=== PATIENT | female | born 1980 | race Caucasian/White ===

== ENCOUNTER 2018-09-05 06:17 | Inpatient (IN) | payer OTHER ==
[2018-09-05] MEDS: DEXTROSE 5%-LR 1,000 ML IV ×3 (06:00→20:11)
[2018-09-05 08:11] LABS: INR 0.98; PROTIME 13.1 Sec (11.9-14.9)
[2018-09-05 08:12] LABS: PARTIAL THROMBOPLASTIN TIME 30.2 Sec (23.0-35.0)
[2018-09-05] MEDS ORDERED: FENTAnyl 50 MCG/ML VIAL (08:17)
[2018-09-05] MEDS ORDERED: MIDAZOLAM 1 MG/ML 2 ML INJ (08:21)
[2018-09-05] MEDS ORDERED: PHENYLephrine (100 MCG/ML) 5ML SYG ×3 (08:40→10:34)
[2018-09-05] MEDS ORDERED: ROPIVACAINE 0.2% 20 ML VIAL (08:54)
[2018-09-05] MEDS ORDERED: SUCCINYLCHOLINE CHLORIDE 100 MG/5 ML SYG IV (08:59)
[2018-09-05] MEDS ORDERED: ROCURONIUM 50 MG INJ (08:59)
[2018-09-05] MEDS ORDERED: CEFAZOLIN 1 GM INJ (08:59)
[2018-09-05] MEDS ORDERED: PROPOFOL 20 ML (08:59)
[2018-09-05] MEDS ORDERED: LIDOCAINE 100 MG SYRINGE (08:59)
[2018-09-05] MEDS ORDERED: LABETALOL HCL 20MG INJ IV (09:00)
[2018-09-05] MEDS ORDERED: FENTAnyl 50 MCG/ML VIAL IV ×2 (09:00)
[2018-09-05] MEDS ORDERED: MEPERIDINE 25 MG INJ IV (09:00)
[2018-09-05] MEDS ORDERED: HYDROmorphONE 1 MG/5 ML IV SYRINGE IV ×2 (09:00)
[2018-09-05] MEDS ORDERED: DIPHENHYDRAMINE 50 MG INJ IV (09:00)
[2018-09-05] MEDS ORDERED: ALBUTEROL 0.083% (NEB) 2.5 MG/3 ML AMP HHN (09:00)
[2018-09-05] MEDS ORDERED: morphine SULFATE/PF (10 MG/10 ML) INJ (09:10)
[2018-09-05] MEDS: CEFAZOLIN 2 GM/50 ML (PMX) 50 ML IVPB ×3 (09:30→23:09)
[2018-09-05] MEDS ORDERED: SUGAMMADEX SODIUM 200 MG/2 ML VIAL IV (10:25)
[2018-09-05] MEDS ORDERED: ONDANSETRON 4 MG INJ (10:51)
[2018-09-05] MEDS: METOCLOPRAMIDE 10 MG INJ IV (11:16)
[2018-09-05] MEDS ORDERED: AMITRIPTYLINE 10 MG TAB PO (11:30)
[2018-09-05] MEDS ORDERED: ZOLPIDEM 5 MG TAB PO (11:30)
[2018-09-05] MEDS ORDERED: BISACODYL (EC) 5 MG TAB PO (11:30)
[2018-09-05] MEDS ORDERED: ONDANSETRON INJ 6 MG in DEXTROSE 5% 50 ML IVPB (11:30)
[2018-09-05] MEDS ORDERED: HYDROCODONE/APAP (5/325) TAB PO ×2 (11:30)
[2018-09-05] MEDS ORDERED: DIPHENHYDRAMINE 50 MG CAP PO (11:30)
[2018-09-05] MEDS: HYDROmorphONE 1 MG/5 ML IV SYRINGE IV ×2 (11:36→12:09)
[2018-09-05] MEDS: FENTAnyl 50 MCG/ML VIAL IV (12:08)
[2018-09-05] MEDS: ONDANSETRON 4 MG INJ IV (12:12)
[2018-09-05 12:23] LABS: ADD UMIC YES; UR ASCORBIC ACID NEGATIVE (NEGATIVE); UR BACTERIA FEW /HPF (NONE SEEN); UR BILIRUBIN (Dip) NEGATIVE (NEGATIVE); UR BLOOD (Dip) 2+ mg/dL (NEGATIVE); UR CLARITY CLEAR (CLEAR); UR COLOR COLORLESS (YELLOW); UR GLUCOSE (Dip) 3+ mg/dL (NEGATIVE); UR KETONES (Dip) 2+ mg/dL (NEGATIVE); UR LEUKOCYTE ESTERASE (Dip) NEGATIVE Leu/ul (NEGATIVE); UR NITRITE (Dip) NEGATIVE (NEGATIVE); UR RBC 12 /HPF (0-5); UR SPECIFIC GRAVITY (Dip) 1.011 (1.003-1.030); UR TOTAL PROTEIN (Dip) NEGATIVE (NEGATIVE); UR UROBILINOGEN (Dip) NEGATIVE (NEGATIVE); UR WBC 2 /HPF (0-5)
[2018-09-05] MEDS ORDERED: DEXTROSE 50% 50 ML SYRINGE IV ×2 (12:30)
[2018-09-05] MEDS ORDERED: GLUCOSE GEL 15 GRAM TUBE PO ×2 (12:30)
[2018-09-05] MEDS ORDERED: GLUCOSE GEL 15 GRAM TUBE BUCCAL (12:30)
[2018-09-05] MEDS ORDERED: GLUCAGON 1 MG INJ IM (12:30)
[2018-09-05] MEDS: KETOROLAC 30 MG INJ IV ×3 (13:34→23:30)
[2018-09-05] MEDS: LACTATED RINGER'S 1,000 ML IV ×2 (15:13→19:02)
[2018-09-05] MEDS: AMITRIPTYLINE 10 MG TAB PO ×2 (20:12→21:00)
[2018-09-06 05:36] LABS: ADD MAN DIFF? NO; BASOPHILS % 0.3 % (0.0-2.0); EOSINOPHILS % 0.1 % (0.0-7.0); HEMATOCRIT 35.6 % (37.0-47.0); LYMPHOCYTES # 2.3 10^3/ul (0.8-2.9); MEAN CORPUSCULAR HEMOGLOBIN 28.6 pg (29.0-33.0); MEAN CORPUSCULAR HGB CONC 30.9 g/dl (32.0-37.0); MEAN CORPUSCULAR VOLUME 92.5 fl (82.0-101.0); MEAN PLATELET VOLUME 9.5 fl (7.4-10.4); MONOCYTES % 8.5 % (0.0-11.0); NEUTROPHIL # 8.2 10^3/ul (1.6-7.5); NEUTROPHILS % 70.8 % (39.0-77.0); PLATELET COUNT 296 10^3/UL (140-415); RED BLOOD COUNT 3.85 10^6/ul (4.20-5.40); RED CELL DISTRIBUTION WIDTH 12.5 % (11.5-14.5)
[2018-09-06 05:36] LABS: WHITE BLOOD COUNT 11.6 10^3/ul (4.8-10.8)
[2018-09-06] MEDS: LACTATED RINGER'S 1,000 ML IV ×3 (05:39→19:02)
[2018-09-06] MEDS: KETOROLAC 30 MG INJ IV ×4 (05:41→23:38)
[2018-09-06] MEDS: CEFAZOLIN 2 GM/50 ML (PMX) 50 ML IVPB ×3 (05:43→21:29)
[2018-09-06 06:19] LABS: ANION GAP 11 (5-13); BLOOD UREA NITROGEN 8 mg/dl (7-20); CARBON DIOXIDE 18 mmol/L (21-31); CHLORIDE 111 mmol/L (97-110); CREATININE 0.48 mg/dl (0.44-1.00); POTASSIUM 4.4 mmol/L (3.5-5.1); SODIUM 140 mmol/L (135-144)
[2018-09-06] MEDS ORDERED: glipiZIDE 5 MG TAB PO (09:00)
[2018-09-06] MEDS: metFORMIN 500 MG TAB PO ×2 (09:00→20:52)
[2018-09-06] MEDS: GABAPENTIN 300 MG CAP PO (09:13)
[2018-09-06] MEDS ORDERED: IBUPROFEN 600 MG TAB PO (14:30)
[2018-09-06] MEDS: GLIMEPIRIDE 4 MG TAB PO (17:45)
[2018-09-06] MEDS: AMITRIPTYLINE 10 MG TAB PO (20:56)
[2018-09-06] MEDS: ACETAMINOPHEN 325 MG TAB PO (21:08)
[2018-09-07] MEDS: LACTATED RINGER'S 1,000 ML IV ×2 (03:02→11:02)
[2018-09-07] MEDS: KETOROLAC 30 MG INJ IV ×2 (05:44→12:08)
[2018-09-07] MEDS: CEFAZOLIN 2 GM/50 ML (PMX) 50 ML IVPB (05:44)
[2018-09-07] MEDS: GABAPENTIN 300 MG CAP PO (08:18)
[2018-09-07] MEDS: metFORMIN 500 MG TAB PO (08:19)
[2018-09-07] MEDS: GLIMEPIRIDE 4 MG TAB PO (08:25)
== END 2018-09-07 13:30 | disposition home or self-care (01) | DRG 941 ==
LOC: REC 06:17 → MS1 12:47
PROVIDERS: Obstetrics & Gynecology
PROC: 0UT90ZZ Resection of Uterus, Open Approach (ICD-10-PCS; principal; 2018-09-05 08:00)
PROC: 0UT70ZZ Resection of Bilateral Fallopian Tubes, Open Approach (ICD-10-PCS; 2018-09-05 08:00)
PROC: 0UB10ZZ Excision of Left Ovary, Open Approach (ICD-10-PCS; 2018-09-05 08:00)
DX: R87.619 Unspecified abnormal cytological findings in specimens from cervix uteri (principal); N93.9 Abnormal uterine and vaginal bleeding, unspecified; R10.2 Pelvic and perineal pain; D25.9 Leiomyoma of uterus, unspecified; E11.9 Type 2 diabetes mellitus without complications; N80.0 Endometriosis of uterus; N83.202 Unspecified ovarian cyst, left side
CPT/HCPCS: 74176; 80051; 81001; 82565; 82962; 84520; 85025; 85610; 85730; 86850; 86900; 86901; 88305